=== PATIENT | female | born 1945 | race Caucasian/White ===

== ENCOUNTER → 2018-07-21 | Outpatient (CLI) | payer MEDICARE ==
[~2018-07-21] MED LIST: REGADENOSON 0.4 MG/5 ML DISP.SYRIN. IV ONE
--- NOTE | 2018-07-21 12:22 | RAD ---
MR#: [id number] Date of Study: 07/21/2018 Ordering Physician: ADIA MOROCHO, Referring Physician: ROXANA ORELLANA Tech: RT Yao Baxter) (N) APPROVED REPORT Test Type: Pharmacological Stress Nurse/Tech: Eve Mitchell RN Test Indications: Fatigue, decreased blood pressure Cardiac History: Hypertension,stent,CAD Medications: See Electronic Medical Record Medical History: See Electronic Medical Record Resting ECG: SB with long MO interval Resting Heart Rate: 56 bpm Resting Blood Pressure: 150/87mmHg Pretest Chest Pain: No chest pain Nurse/Tech Notes S1,S2 and lungs are clear to auscultation. Consent: The procedure was explained to the patient in lay terms. Informed consent was witnessed. Martinez eout was entered into [employer]. History and Stress Test performed by RT Yao Baxter) (N) Pharm. Details Pharmacologic stress testing was performed using 0.4mg per 5ml of regadenoson given intravenously ove r 7-10 seconds. Stress Symptoms Dyspnea,Dizziness,Headache POST EXERCISE Reason for Termination: Infusion complete Target HR: No Max HR: 80 bpm Max Blood Pressure: 165/70mmHg Blood Pressure response to exercise: Normal blood pressure response during stress. Heart Rate response to exercise: WNL Chest Pain: No. Arrhythmia: No. ST Change: No. INTERPRETATION Stress EKG Conclusion: No evidence of stress induced EKG changes Imaging Protocol IMAGE PROTOCOL: Stress Tc-99m/rest Tc-99m 2 days Rest: Stress: Viability: Radiopharm.Tc99m Sestamibi Hekg80oNg Duration 15min. Img Date 07/21/2018 Inj-Img [id number]. Stress Admin Site: IV - Right HandAdministrator: RT Yao Johnson)(N) STRESS DATA End Diast. Vol.73.0mlAv. Heart Rate65.0bpm LVEDV index BSA34.0mlCardiac Output1.9L/min End Syst. Vol.10.0mlCO Index BSA4.1L/min LVESV index BSA4.0mlMyocardial Cahu708.0g Eject. Ibdybpov78.0% Stress Scores Regional WT0.00Summed WT6.00 Regional WM0.00Summed WM0.00 LV Perfusion Normal perfusion at stress. LV Perf. Quant 17 Seg. SSS1.00 Stress Defect Extent (% LAD)0.00Rest Defect Extent (% LAD)Rev. Defect Extent (% LAD)0.00 Stress Defect Extent (% LCX) 8.80Rest Defect Extent (% LCX)Rev. Defect Extent (% LCX)0.00 Stress Defect Extent (% RCA)0.00Rest Defect Extent (% RCA)Rev. Defect Extent (% RCA)0.00 Stress Defect Extent (% CAMRYN)1.70Rest Defect Extent (% CAMRYN)Rev. Defect Extent (% CAMRYN)0.00 Other Information Quality:Good Risk Assessment: Low Risk Conclusion 1. No evidence of EKG changes with stress testing. 2. Normal perfusion at stress. 3. Low risk study. 4. EF > 60%. Signed by : Adia Morocho, Electronically Approved : 07/21/2018 12:21:16
== END | disposition home or self-care (01) ==
LOC: NM 08:02
PROVIDERS: ATTEND Internal Medicine Cardiovascular Disease
DX: I25.10 Atherosclerotic heart disease of native coronary artery without angina pectoris (principal); I10 Essential (primary) hypertension; R51 Headache; R42 Dizziness and giddiness; R06.00 Dyspnea, unspecified
CPT/HCPCS: 36415; 78452; 84443; 93017; 96374; 96375; A9500; J2785

== ENCOUNTER → 2019-01-20 | Outpatient (CLI) | payer MEDICARE ==
--- NOTE | 2019-01-20 19:52 | RAD ---
MR#: [id number] Date of Study: 01/20/2019 Ordering Physician: ADIA LAZCANO, Referring Physician: ADIA LAZCANO, Tech: Abhay Hester MBA, RDMS, RVT, RDCS, RTR APPROVED REPORT Patient Location: OUT-PATIENT Laterality:Bilateral Indications CAD Doppler Spectral Velocity Analysis Right Left pCCA 95/16 cm/spCCA 108/25 cm/s mCCA 92/20 cm/smCCA 84/26 cm/s dCCA 96/23 cm/sdCCA 62/19 cm/s Bulb 73/17 cm/sBulb 196/42 cm/s ECA 88/ cm/sECA 348/ cm/s pICA 83/20 cm/spICA 360/122 cm/s Joshua 78/26 cm/smICA 145/40 cm/s dICA 82/27 cm/sdICA 109/33 cm/s Vert. 35/ cm/sVert. 41/ cm/s Subcl. 121/ cm/sSubcl. 135/ cm/s ICA/CCA 0.86ICA/CCA 3.33 Findings Grayscale images of the right common carotid, external and internal carotid vessels reveals mild inti mal hyperplasia with mild to moderate nonobstructive plaque. Spectral waveforms and color Doppler in the internal carotid vessels do not reveal any significant flow-limiting stenosis. Overall 0 to less than 50% stenosis by velocity criteria. Normal ICA to CCA ratios are noted. The vertebral velocities are antegrade on the right side. Normal subclavian velocities are noted. Grayscale images of the left common carotid, external and internal carotid vessels reveals diffuse co mplex obstructive plaque of greater than 50% stenosis. Velocity criteria and spectral waveforms are c onsistent with greater than 70% stenosis of the carotid bulb, external and internal carotid artery. I CA to CCA ratios are elevated overall consistent with significant stenosis. Vertebral velocities are also antegrade on the left side. Subclavian velocities are within normal limits. Critical Notification Critical Value: No <Conclusion> 1. Severe left carotid bulb, external and internal carotid artery stenosis of greater than 70%. Signed by : Adia Lazcano, Electronically Approved : 01/20/2019 19:52:00
== END | disposition home or self-care (01) ==
LOC: US 13:11
PROVIDERS: ATTEND Internal Medicine Cardiovascular Disease
DX: I65.23 Occlusion and stenosis of bilateral carotid arteries (principal); I25.10 Atherosclerotic heart disease of native coronary artery without angina pectoris
CPT/HCPCS: 93880

== ENCOUNTER → 2019-07-07 | Outpatient (CLI) | payer MEDICARE ==
[2019-07-07 10:26] LABS: ALBUMIN 3.6 g/dL (3.4-5.0); CALCIUM 9.2 mg/dL (8.5-10.1); CREATININE 1.1 mg/dL (0.6-1.0); GFR 48.7; TOTAL BILIRUBIN 0.4 mg/dL (0.2-1.0); TOTAL PROTEIN 7.3 g/dL (6.4-8.2)
[2019-07-07 10:29] LABS: CHOLESTEROL/HDL RATIO 5.6
== END | disposition home or self-care (01) ==
LOC: LAB 09:41
PROVIDERS: ATTEND Internal Medicine Cardiovascular Disease
DX: I25.10 Atherosclerotic heart disease of native coronary artery without angina pectoris (principal)
CPT/HCPCS: 36415; 80053; 80061; 83721

== ENCOUNTER → 2020-06-29 | Outpatient (CLI) | payer MEDICARE ==
--- NOTE | 2020-06-29 15:44 | CARD ---
MR#: [id number] Date of Study: 06/29/2020 Ordering Physician: ADIA LAZCANO, Referring Physician: ADIA LAZCANO, Tech: Wilda Shi [facility] APPROVED REPORT EXAM: Two-dimensional and M-mode echocardiogram with Doppler and color Doppler. Other Information Quality : Good INDICATION Cardiac Disease: CAD 2D DIMENSIONS RVDd2.7 (2.9-3.5cm)Left Atrium(2D)3.7 (1.6-4.0cm) IVSd0.9 (0.7-1.1cm)Aortic Root(2D)2.5 (2.0-3.7cm) LVDd4.7 (3.9-5.9cm)LVOT Diameter2.0 (1.8-2.4cm) PWd1.0 (0.7-1.1cm)LVDs3.7 (2.5-4.0cm) FS (%) 30.0 %SV46.6 ml LVEF(%)60.0 (>50%) Aortic Valve AoV Peak Noel.163.0cm/sAoV VTI34.3cm AO Peak GR.10.6mmHgLVOT Peak Noel.128.9cm/s AO Mean GR.5mmHgAVA (VMAX)2.51cm2 DAYNA (VTI)2.50cm2 Mitral Valve MV E Exbenchl650.0cm/sMV DECEL NWQF112rx MV A Blcfduye35.3cm/sE/A Ratio1.2 Pulmonary Vein S1 Zaijqkvt93.2cm/sD2 Wdnqchjn70.6cm/s LEFT VENTRICLE The left ventricle is normal size. There is normal left ventricular wall thickness. The left ventricu lar systolic function is normal. The ejection fraction is 60%. There is normal LV segmental wall tristen on. RIGHT VENTRICLE The right ventricle is normal size. The right ventricular systolic function is normal. ATRIA The left atrium size is normal. The right atrium size is normal. The interatrial septum is intact wit h no evidence for an atrial septal defect or patent foramen ovale as noted on 2-D or Doppler imaging. AORTIC VALVE The aortic valve is calcified but opens well. Doppler and Color Flow revealed mild aortic regurgitati on. There is no significant aortic valvular stenosis. MITRAL VALVE The mitral valve is calcified but opens well. There is no evidence of mitral valve prolapse. There is no mitral valve stenosis. Doppler and Color-flow revealed trace mitral regurgitation. TRICUSPID VALVE The tricuspid valve is normal in structure and function. Doppler and Color Flow revealed no tricuspid valve regurgitation noted. There is no tricuspid valve stenosis. PULMONIC VALVE The pulmonary valve is normal in structure and function. Doppler and Color Flow revealed trace pulmon ic valvular regurgitation. There is no pulmonic valvular stenosis. GREAT VESSELS The aortic root is normal in size. The ascending aorta is mildly dilated at 3.6 cm. The IVC is dilate d and collapses >50% with inspiration. PERICARDIAL EFFUSION There is no evidence of significant pericardial effusion. Critical Notification Critical Value: No <Conclusion> The left ventricular systolic function is normal. The ejection fraction is 60%. There is normal LV segmental wall motion. Mild aortic regurgitation. Trace mitral regurgitation. There is no evidence of significant pericardial effusion. Signed by : Raleigh Bearden, Electronically Approved : 06/29/2020 15:44:18
== END | disposition home or self-care (01) ==
LOC: US 13:50
PROVIDERS: ATTEND Internal Medicine Cardiovascular Disease
DX: I08.0 Rheumatic disorders of both mitral and aortic valves (principal); I25.10 Atherosclerotic heart disease of native coronary artery without angina pectoris
CPT/HCPCS: 93306

== ENCOUNTER → 2020-12-27 | Outpatient (CLI) | payer MEDICARE ==
[2020-12-27 12:32] LABS: ALBUMIN 3.5 g/dL (3.4-5.0); ALBUMIN/GLOBULIN RATIO 0.9 (1.0-1.7); CALCIUM 8.9 mg/dL (8.5-10.1); CREATININE 1.1 mg/dL (0.6-1.0); GFR 48.6; TOTAL BILIRUBIN 0.5 mg/dL (0.2-1.0); TOTAL PROTEIN 7.3 g/dL (6.4-8.2)
[2020-12-27 12:33] LABS: CHOLESTEROL/HDL RATIO 3.3
--- NOTE | 2020-12-27 12:47 | RAD ---
MR#: [id number] Date of Study: 12/27/2020 Ordering Physician: ADIA LAZCANO, Referring Physician: ADIA LAZCANO, Tech: Anju He, MEGMS, RVT, RTR APPROVED REPORT Patient Location: OUT-PATIENT Laterality:Bilateral Indications Occlusion or stenosis of unspecified Carotid artery Risk Factors Hypertension: Hyperlipidemia Surgery/Intervention Endarterectomy: left Doppler Spectral Velocity Analysis Right Left pCCA 72/16 cm/spCCA 160/40 cm/s mCCA 117/27 cm/smCCA 120/27 cm/s dCCA 93/18 cm/sdCCA 81/28 cm/s Bulb 64/22 cm/sBulb 66/23 cm/s ECA 95/14 cm/sECA 83/17 cm/s pICA 78/19 cm/spICA 86/25 cm/s Joshua 198/49 cm/smICA 96/32 cm/s dICA 149/28 cm/sdICA 118/39 cm/s Vert. 31/9 cm/sVert. 41/12 cm/s ICA/CCA 1.69ICA/CCA 0.98 Findings Grayscale images of the bilateral carotid vessels demonstrate mild diffuse atherosclerosis. On the right side based on velocity criteria there is a moderate 50 to 69% stenosis but this may part ially be due to tortuous vessels. The right vertebral velocity has normal antegrade flow. Normal IC A to CCA ratios bilaterally. On the left side overall 0 to less than 50% stenosis based on velocity criteria. Antegrade vertebral velocities are again noted. No significant bilateral external carotid arterial disease. Critical Notification Critical Value: No <Conclusion> 1. Moderate right internal carotid arterial disease, no significant left-sided disease Signed by : Adia Lazcano, Electronically Approved : 12/27/2020 12:46:40
== END ==
LOC: US 11:12
PROVIDERS: ATTEND Internal Medicine Cardiovascular Disease
DX: I65.23 Occlusion and stenosis of bilateral carotid arteries (principal); I25.10 Atherosclerotic heart disease of native coronary artery without angina pectoris; I10 Essential (primary) hypertension; E78.5 Hyperlipidemia, unspecified
CPT/HCPCS: 36415; 80053; 80061; 83721; 93880

== ENCOUNTER → 2021-10-01 | Outpatient (CLI) | payer MEDICARE ==
[2021-10-01 10:02] LABS: CHOLESTEROL/HDL RATIO 3.8
--- NOTE | 2021-10-01 17:31 | RAD ---
MR#: [id number] Date of Study: 10/01/2021 Ordering Physician: ADIA LAZCANO, Referring Physician: ROXANA ORELLANA Tech: SETH Dooley, ARRT (R) (N) APPROVED REPORT Test Type: Pharmacological Stress Nurse/Tech: Estella Baker RN Test Indications: CAD Cardiac History: HTN, PTCA in 1995, See EMR. Medications: See EMR. Medical History: See EMR. Resting ECG: SR Resting Heart Rate: 62 bpm Resting Blood Pressure: 191/93mmHg Pretest Chest Pain: No chest pain Nurse/Tech Notes Lungs CTA, Heart tones regular. Pharm. Details Pharmacologic stress testing was performed using 0.4mg per 5ml of regadenoson given intravenously ove r 7-10 seconds. Stress Symptoms Dyspnea, Nausea, and Chest "tightness" rated at a 3/10 during Stage 1 @ 1:00. Dyspnea, Nausea, and ch est "tightness" (as described by the patient) resolved by stage R @ 02:55. POST EXERCISE Reason for Termination: Infusion complete Max HR: 80 bpm Max Blood Pressure: 165/76mmHg Blood Pressure response to exercise: Normal blood pressure response during stress. Heart Rate response to exercise: WNL Chest Pain: No. Arrhythmia: No. ST Change: No. INTERPRETATION Stress EKG Conclusion: The resting EKG shows a sinus rhythm with slight nonspecific ST segment change s. The stress EKG shows no significant change from baseline. No EKG evidence of stress-induced ischemia. Imaging Protocol IMAGE PROTOCOL: Rest Tc-99m/stress Tc-99m 1 day Rest: Stress: Viability: Radiopharm.Tc99m JgjoauoopOl13s Sestamibi Dose10.5mCi 32mCi Img Date 10/01/2021 10/01/2021 Inj-Img [id number]. 60min. Rest Admin Site:IV - Right WristAdministrator:RT Elizabeth (R)(N) Stress Admin Site: IV - Right WristAdministrator: RT Elizabeth (R)(N) STRESS DATA End Diast. Vol.77.0mlAv. Heart Rate68.0bpm End Syst. Vol.6.0mlCO Index BSA0.0L/min Myocardial Igai350.0gEject. Zryixlxs14.0% Stress Rates Pk. Fill Rate3.83EDV/secLVtime Pk. Fill 223.02msec Pk. Empty Rate4.01ESV/secLVtime Pk. Lgopq930.60msec 1/3 Pk. Fill0.52EDV/sec Stress Scores Regional WT0.00Summed WT0.00 Regional WM0.00Summed WM0.00 LV Perfusion The stress scans show no significant defects. The rest scans show no significant defects. Nuclear imaging shows no reversible ischemia or infarct. Wall Motion Left ventricular systolic function is normal with no regional wall motion abnormalities and an ejecti on fraction of greater than 70%. LV Perf. Quant 17 Seg. SSS1.00 17 Seg. SRS6.00 17 Seg. SDS0.00 Stress Defect Extent (% LAD)0.00Rest Defect Extent (% LAD)15.00Rev. Defect Extent (% LAD)0.00 Stress Defect Extent (% LCX) 0.00Rest Defect Extent (% LCX)36.30Rev. Defect Extent (% LCX)0.00 Stress Defect Extent (% RCA)0.00Rest Defect Extent (% RCA)0.00Rev. Defect Extent (% RCA)0.00 Stress Defect Extent (% CAMRYN)0.00Rest Defect Extent (% CAMRYN)14.80Rev. Defect Extent (% CAMRYN)0.00 Conclusion 1. No EKG evidence of stress-induced ischemia. 2. Nuclear imaging shows no reversible ischemia or infarct. 3. Normal left ventricular systolic function with an ejection fraction of greater than 70%. 4. Low risk Lexiscan nuclear stress test. Signed by : Horace Dee MD Electronically Approved : 10/01/2021 17:31:13
== END ==
LOC: NM 09:00
PROVIDERS: ATTEND Internal Medicine Cardiovascular Disease
DX: I25.10 Atherosclerotic heart disease of native coronary artery without angina pectoris (principal)
CPT/HCPCS: 36415; 78452; 80061; 83721; 93017; A9500; J2785

== ENCOUNTER → 2022-03-19 | Outpatient (CLI) | payer MEDICARE ==
--- NOTE | 2022-03-19 13:37 | RAD ---
MR#: [id number] Date of Study: 03/19/2022 Ordering Physician: ADIA LAZCANO, Referring Physician: ADIA LAZCANO, Tech: Abhay Hester MBA, RDMS, RVT, RDCS, RTR APPROVED REPORT Patient Location: OUT-PATIENT Laterality:Bilateral Indications CAROTID ARTERY DISEASE Doppler Spectral Velocity Analysis Right Left pCCA 121/24 cm/spCCA 102/21 cm/s mCCA 99/23 cm/smCCA 135/27 cm/s dCCA 90/22 cm/sdCCA 106/28 cm/s Bulb 76/16 cm/sBulb 141/33 cm/s ECA 112/ cm/sECA 86/ cm/s pICA 114/25 cm/spICA 104/33 cm/s Joshua 101/25 cm/smICA 113/35 cm/s dICA 66/21 cm/sdICA 116/39 cm/s Vert. 44/ cm/sVert. 46/ cm/s Subcl. 120/ cm/sSubcl. 144/ cm/s ICA/CCA 0.94ICA/CCA 1.14 Findings Grayscale images of bilateral extracranial carotid arteries showed mild to moderate atherosclerotic p laque in the carotid bulbs. The right internal carotid artery appeared tortuous. Spectral waveform and color duplex analysis showed normal velocities suggestive of 0 to less than 50% stenosis. The IC A to CCA ratios were within normal limits. The vertebral arteries showed antegrade flow with normal velocities bilaterally. No significant carotid artery stenosis was noted. Critical Notification Critical Value: No <Conclusion> Carotid arterial duplex scan did not show any significant carotid artery stenosis. Signed by : Raleigh Bearden, Electronically Approved : 03/19/2022 13:37:18
== END ==
LOC: US 10:48
PROVIDERS: ATTEND Internal Medicine Cardiovascular Disease
DX: I65.23 Occlusion and stenosis of bilateral carotid arteries (principal)
CPT/HCPCS: 93880